=== PATIENT | female | born 1970 | race Caucasian/White ===

== ENCOUNTER → 2018-03-05 16:35 | Outpatient (CLI) | payer MEDICARE ==
[2011-06-03 13:15] VITALS: BMI 41.5
== END | disposition home or self-care (01) ==
LOC: D.MAMMO 15:15
DX: Z12.31 Encounter for screening mammogram for malignant neoplasm of breast (principal)

== ENCOUNTER 2018-10-15 21:07 | Observation (INO) | payer MEDICARE, BC ==
[~2018-10-15] VITALS: Ht 152.4 cm; Wt 84.1 kg
[2018-10-15] MEDS ORDERED: TOPROL XL50 MG PO (21:12)
[2018-10-15] MEDS ORDERED: TEGRETOL XR200 M1 PO (21:12)
[2018-10-15] MEDS ORDERED: ZESTRIL20 MG PO (21:12)
[2018-10-15] MEDS ORDERED: ZOCOR20 MG PO (21:12)
[2018-10-15] MEDS ORDERED: GLIMEPIRIDE4 MG PO (21:13)
[2018-10-15 21:50] LABS: BASOPHILS 0.5 % (0-2); EOSINOPHILS 1.8 % (0-7); HEMATOCRIT 35.9 % (36.0-48.0); HEMOGLOBIN 12.6 g/dL (12-16); IMMATURE GRANULOCYTES 0.3 % (0-5); LYMPHOCYTES 28.2 % (15-50); MCH 29.7 pg (26.0-34.0); MCHC 35.1 g/dL (31.0-37.0); MCV 84.7 fL (80.0-100.0); MEAN PLATELET VOLUME 10.5 fL (7.4-10.4); MONOCYTES 4.5 % (2-11); NEUTROPHILS 64.7 % (40-80); RBC 4.24 10x6/uL (4.00-5.40); RDW 12.5 % (11.5-14.5); WBC 9.8 10x3/uL (4.8-10.8)
[2018-10-15 21:56] LABS: PLATELET COUNT 205 10x3/uL (130-400)
[2018-10-15 22:24] LABS: ALKALINE PHOSPHATASE 141 U/L (46-116); ALT (SGPT) 20 U/L (10-68); BILIRUBIN - TOTAL 0.29 mg/dL (0.2-1.3); CALCIUM 8.6 mg/dL (8.5-10.1); CARBON DIOXIDE 27.7 mmol/L (21.0-32.0); CHLORIDE - SERUM 99 mmol/L (98-107); CKMB 0.8 U/L (0.0-3.6); CREATINE KINASE 47 UL (21-215); CREATININE - SERUM 1.7 mg/dL (0.6-1.3); MAGNESIUM - SERUM 1.5 mg/dL (1.8-2.4); PROTEIN - SERUM 7.7 g/dL (6.4-8.2); SODIUM 135 mmol/L (136-145); UREA NITROGEN 13 mg/dL (7-18); eGFR NON AFRICAN AMERICAN 34 mL/min (90-120)
[2018-10-15 22:26] LABS: CALC OSMOLALITY 288 mosm/kg (275-300); TROPONIN-I < 0.017 ng/mL (0.000-0.060)
[2018-10-15 22:27] LABS: GLUCOSE 443 mg/dL (74-106)
[2018-10-15 22:33] LABS: APPEARANCE CLEAR (CLEAR); BILIRUBIN NEGATIVE (NEGATIVE); COLOR YELLOW (YELLOW); GLUCOSE 1000 mg/dL (NEGATIVE); KETONE NEGATIVE (NEGATIVE); NITRITE NEGATIVE (NEGATIVE); PROTEIN 1+ mg/dL (NEGATIVE); UROBILINOGEN NORMAL (NORMAL)
[2018-10-15 22:34] LABS: BACTERIA MODERATE /hpf (NONE SEEN); EPITHELIAL CELLS 0-5 /hpf (0-5); RED CELLS - URINE 0-5 /hpf (0-5)
[2018-10-15 22:35] LABS: YEAST <1+ /hpf (NONE SEEN)
[2018-10-15 22:44] VITALS: BP 172/93
[2018-10-16] VITALS (8 sets, daily range): BP systolic 140–169; BP diastolic 77–100; Ht 152.4 cm; Wt 84.1 kg
--- NOTE | 2018-10-16 03:05 | NUR ---
RESTING IN ROOM QUIETLY RESP EVEN AND UNLABORED CALL LIGHT IN REACH. DIET COKE ADMINISTERED PER REQUEST
[2018-10-16 06:59] LABS: BASOPHILS 0.4 % (0-2); EOSINOPHILS 2.8 % (0-7); HEMATOCRIT 35.2 % (36.0-48.0); HEMOGLOBIN 12.1 g/dL (12-16); IMMATURE GRANULOCYTES 0.4 % (0-5); LYMPHOCYTES 29.6 % (15-50); MCH 29.3 pg (26.0-34.0); MCHC 34.4 g/dL (31.0-37.0); MCV 85.2 fL (80.0-100.0); MEAN PLATELET VOLUME 10.7 fL (7.4-10.4); MONOCYTES 6.4 % (2-11); NEUTROPHILS 60.4 % (40-80); PLATELET COUNT 177 10x3/uL (130-400); RBC 4.13 10x6/uL (4.00-5.40); RDW 12.7 % (11.5-14.5); WBC 8.5 10x3/uL (4.8-10.8)
--- NOTE | 2018-10-16 07:15 | NUR ---
Bedside report taken from COLLEEN Enriquez. Pt denies further needs at this time.
--- NOTE | 2018-10-16 07:33 | NUR ---
FSBS= 184MG /DL
[2018-10-16 07:56] LABS: CALCIUM 8.4 mg/dL (8.5-10.1); CARBON DIOXIDE 27.2 mmol/L (21.0-32.0); CHLORIDE - SERUM 104 mmol/L (98-107); CKMB 0.5 U/L (0.0-3.6); CREATINE KINASE 36 UL (21-215); CREATININE - SERUM 1.3 mg/dL (0.6-1.3); MAGNESIUM - SERUM 1.6 mg/dL (1.8-2.4); POTASSIUM - SERUM 3.6 mmol/L (3.5-5.1); SODIUM 140 mmol/L (136-145); UREA NITROGEN 14 mg/dL (7-18); eGFR NON AFRICAN AMERICAN 46 mL/min (90-120)
[2018-10-16 07:57] LABS: CALC OSMOLALITY 285 mosm/kg (275-300); GLUCOSE 208 mg/dL (74-106); TROPONIN-I < 0.017 ng/mL (0.000-0.060)
--- NOTE | 2018-10-16 08:23 | NUR ---
Pt resting in bed at this time. Pt shows no signs of distress.
--- NOTE | 2018-10-16 09:43 | NUR ---
Pt resting in bed. Pt respirations even and unlabored. Pt denies further needs at this time.
--- NOTE | 2018-10-16 11:56 | NUR ---
TRANSFER FROM ER BY W/C. REINALDOINTED TO ROOM. CALL LIGHT IN REACH. WILL CONT. PLAN OF CARE.
--- NOTE | 2018-10-16 19:26 | NUR ---
RESUMING PATIENT CARE. PATIENT IS ALERT AND ORIENTED. RESPIRATIONS ARE EVEN AND UNLABORED. NO S/S OF DISTRESS. NO C/O PAIN. DENIES NEEDS AT THIS TIME. CALL LIGHT WITHIN REACH. WILL CPOC.
--- NOTE | 2018-10-16 22:49 | NUR ---
PATIENT RESTING COMFORTABLY IN BED. RESPIRATIONS ARE EVEN AND UNLABORED. PATIENT DENIES NEEDS AT THIS TIME. NO S/S OF DISTRESS. NO C/O PAIN. CALL LIGHT WITHIN REACH. WILL CPOC.
[2018-10-17 00:30] VITALS: BP 116/63
--- NOTE | 2018-10-17 03:29 | NUR ---
PATIENT RESTING COMFORTABLY. RESPIRATIONS EVEN AND UNLABORED. NO S/S OF DISTRESS. CALL LIGHT WITHIN REACH. WILL CPOC.
[2018-10-17 05:00] VITALS: BP 113/52
--- NOTE | 2018-10-17 07:30 | NUR ---
RECEIVED PT IN BED EYES CLOSED RESP UNLABORED SKIN W/D COLOR WNL NAD NOTED WILL CONTINUE TO MONITOR
[2018-10-17 10:02] VITALS: BP 142/75
[2018-10-17 11:07] LABS: BASOPHILS 0.4 % (0-2); EOSINOPHILS 3.1 % (0-7); HEMATOCRIT 36.5 % (36.0-48.0); HEMOGLOBIN 12.8 g/dL (12-16); IMMATURE GRANULOCYTES 0.2 % (0-5); LYMPHOCYTES 21.5 % (15-50); MCH 29.7 pg (26.0-34.0); MCHC 35.1 g/dL (31.0-37.0); MCV 84.7 fL (80.0-100.0); MONOCYTES 4.5 % (2-11); NEUTROPHILS 70.3 % (40-80); RBC 4.31 10x6/uL (4.00-5.40); RDW 12.6 % (11.5-14.5)
[2018-10-17 11:21] LABS: CALC OSMOLALITY 282 mosm/kg (275-300); CALCIUM 7.6 mg/dL (8.5-10.1); CARBON DIOXIDE 25.9 mmol/L (21.0-32.0); CHLORIDE - SERUM 107 mmol/L (98-107); CREATININE - SERUM 1.3 mg/dL (0.6-1.3); MAGNESIUM - SERUM 1.3 mg/dL (1.8-2.4); POTASSIUM - SERUM 3.8 mmol/L (3.5-5.1); SODIUM 141 mmol/L (136-145); UREA NITROGEN 14 mg/dL (7-18); eGFR NON AFRICAN AMERICAN 46 mL/min (90-120)
[2018-10-17 11:23] LABS: PLATELET COUNT 235 10x3/uL (130-400); WBC 12.1 10x3/uL (4.8-10.8)
[2018-10-17 11:24] LABS: GLUCOSE 124 mg/dL (74-106); VALPROIC ACID (DEPAKOTE) < 3.0 ug/mL (50.0-100.0)
--- NOTE | 2018-10-17 11:42 | NUR ---
LAB DRAW 125 NO SLIDING SCALE REQUIRED
--- NOTE | 2018-10-17 14:01 | NUR ---
PER ESCOBAR/SOX ANALYST HOLD DISCHARGE AND START ON LEVAQUIN 500MG PO X 7 DAYS, ORDER CBC (DIFF) AND CMP FOR TOMORROW AM. HOLD DC DUE TO ELEVATED WBC'S
[2018-10-17 15:34] VITALS: BP 140/78
--- NOTE | 2018-10-17 16:23 | NUR ---
FSBS 110
--- NOTE | 2018-10-17 19:30 | NUR ---
RESUMING PATIENT CARE. PATIENT IS RESTING COMFORTABLY IN BED. RESPIRATIONS ARE EVEN AND UNLABORED. DENIES NEEDS. NO S/S OF DISTRESS. NO C/O PAIN. CALL LIGHT WITHIN REACH. WILL CPOC.
[2018-10-17 20:00] VITALS: BP 168/93
[2018-10-18] VITALS: BP 141/78
[2018-10-18 04:00] VITALS: BP 129/73
[2018-10-18 05:32] LABS: BASOPHILS 0.3 % (0-2); EOSINOPHILS 3.2 % (0-7); HEMATOCRIT 33.9 % (36.0-48.0); HEMOGLOBIN 11.5 g/dL (12-16); IMMATURE GRANULOCYTES 0.3 % (0-5); LYMPHOCYTES 25.7 % (15-50); MCHC 33.9 g/dL (31.0-37.0); MCV 85.6 fL (80.0-100.0); MEAN PLATELET VOLUME 10.6 fL (7.4-10.4); MONOCYTES 6.1 % (2-11); NEUTROPHILS 64.4 % (40-80); PLATELET COUNT 192 10x3/uL (130-400); RBC 3.96 10x6/uL (4.00-5.40); RDW 12.8 % (11.5-14.5); WBC 11.8 10x3/uL (4.8-10.8)
[2018-10-18 06:05] LABS: ALBUMIN 2.1 g/dL (3.4-5.0); ANION GAP 13.5 mmol/L (8-16); BILIRUBIN - TOTAL 0.12 mg/dL (0.2-1.3); CALCIUM 7.4 mg/dL (8.5-10.1); CARBON DIOXIDE 21.4 mmol/L (21.0-32.0); CREATININE - SERUM 1.3 mg/dL (0.6-1.3); POTASSIUM - SERUM 3.9 mmol/L (3.5-5.1); PROTEIN - SERUM 5.9 g/dL (6.4-8.2)
--- NOTE | 2018-10-18 09:47 | NUR ---
ASSESSMENT DONE. DENIES NEEDS.
[2018-10-18 10:30] VITALS: BP 144/74
[2018-10-18] MEDS ORDERED: LEVOFLOXACIN500 MG PO (11:23)
--- NOTE | 2018-10-18 11:25 | NUR ---
I have reviewed this patient and I concur with the Shift Assessment completed by the Licensed Practical Nurse today this shift.
[2018-10-18 12:56] VITALS: BP 133/76
--- NOTE | 2018-10-18 13:02 | NUR ---
DC GIVEN TO PT
--- NOTE | 2018-10-18 13:14 | NUR ---
DC HOME PER PERSONAL CAR
--- NOTE | 2018-10-18 15:07 | MORECARE ---
CASE MANAGEMENT DISCHARGE SUMMARY PATIENT: DOMINGA MASTERS UNIT: [id number] ADM DATE: 10/15/18 AGE: 48 : 70 SEX: F ROOM/BED: D.2114 AUTHOR: RANJIT FRANCO PHYSICIAN: REFERRING PHYSICIAN: AL VILLALOBOS MD DATE OF SERVICE: 10/18/18 Discharge Plan Patient Name: DOMINGA MASTERS [facility] : 1970 Planned Disposition: Home Anticipated Discharge Date: 10/18/18 Discharge Date: 10/18/2018 Expected LOS: 3 Initial Reviewer: [email or web address] Initial Review Date: 10/18/2018 Generated: 10/18/18 4:07 pm Coverage Notice Reviewer: [email or web address] Shana Velasco Notice Issued Date-Time: 10/16/2018 16:31 Notice Type: Medicare Outpatient Observation Notice Notice Delivered To: Patient Relationship to Patient: Self Sheltered Workshop Executive Director Name: Delivery Method: HAND - Hand Delivered Madyson Days: Prior Verbal Notification: Recipient Understood Notice: Yes Recipient Signature: Yes Med Rec Note Co-signed by Attending: Coverage Notice Comment: Patient Name: DOMINGA MASTERS Page [phone] at 1507 All edits/amendments must be made on the electronic document DICTATION DATE: 10/18/18 1506 INSPECTOR FLOOR SUB ASSEMBLY: MARYANN 10/18/18 1506 RPT#: [id number] DC DATE:10/18/18 STATUS: DIS IN [id number] [place] [address] END OF REPORT
== END 2018-10-18 13:29 | disposition home or self-care (01) ==
LOC: D.ER 21:07 → D.EDHOLD 23:17 → OBSVTIME 23:17 → D.M2 10-16 11:15
PROVIDERS: Family Medicine; ADMIT Internal Medicine Nephrology; ATTEND Internal Medicine Nephrology
DX: I20.9 Angina pectoris, unspecified (principal); I10 Essential (primary) hypertension; E11.9 Type 2 diabetes mellitus without complications; G40.909 Epilepsy, unspecified, not intractable, without status epilepticus; E83.42 Hypomagnesemia; N39.0 Urinary tract infection, site not specified; Z91.128 Patient's intentional underdosing of medication regimen for other reason

== ENCOUNTER 2019-10-30 14:46 | Observation (INO) | payer MEDICARE ==
[~2019-10-30] VITALS: Ht 152.4 cm; Wt 84.0 kg
--- NOTE | ~2019-10-30 | HEMODYNAMI ---
PATIENT:DOMINGA MASTERS MEDICAL RECORD: [id number] : [birth year] [facility] AD[facility]ION DATE: 10/30/19 Generatedon:10/31/201911:32 Patient name: DOMINGA MASTERS Patient #: [id number] SSN: [id number] : 1970 Date of study: 10/31/2019 Page: Of Hemodynamic Procedure Report Patient Data Patient Demographics Procedure consent was obtained First Name: DOMINGA Gender: Female Last Name: SONAM : 1970 Patient #: [id number] Age: 49 year(s) Race: SSN: [id number] Additional ID: [id number] Contact details Address: [place] [address] State: [place] City: [place] Zip code: [address] Past Medical History Allergies Allergen Reaction Date Comments Reported Other allergy 10/31/2019 sulfa Admission Admission Data Admission Date: 10/30/2019 Admission Time: 20:59 Arrival Date: 10/31/2019 Arrival Time: 0:00 Admit Source: Other Insurance Payor: Medicare Room #: D.2119 [facility] #: [id number] Height (in.): 59.84 BSA: 1.78 (m2) Height (cm.): 152 BMI: 35.06 (kg/m2) Weight (lbs.): 178.58 Weight (kg.): 81 Lab Results Lab Result Date: 10/31/2019 Lab Result Time: 0:00 Biochemistry Name Units Result Min Max BUN mg/dl 11 --(-*--)-- 7 18 Creatinine mg/dl 1.3 --(---*)-- 0.6 1.3 eGFR ml/min 46 *-(----)-- 90 120 NONAFRICAN CBC Name Units Result Min Max Hemoglobin g/dl 10.7 *-(----)-- 13.5 17.5 Procedure Procedure Types Cath Procedure Diagnostic Procedure LHC LHC w/Coronaries Sedation Charges Moderate Sedation up to 30 minutes PCI Procedure Coronary Stent Coronary Stent Initial Hemochron ACT Test Procedure Description Procedure Date Procedure Date: 10/31/2019 Procedure Start Time: 10:58 Procedure End Time: 11:29 Procedure Staff Name Function Ricky Perkins MD Performing Physician Irlanda Briggs RT Flower Picker Meli Pruett RT Monitor Margaret James RN Nurse Evette Mclaughlin RT Scrub Procedure Data Cath Procedure Fluoroscopy Diagnostic fluoroscopy Total fluoroscopy Time: 8.4 time: 8.4 min min Diagnostic fluoroscopy Total fluoroscopy dose: 989 dose: 989 mGy mGy Contrast Material Contrast Material Type Amount (ml) Isovue 300 103 Entry Location Entry Primary Successful Side Size Upsize Upsize Entry Closure Kirk ccessful Closure Location (Fr) 1 (Fr) 2 (Fr) Remarks Device Remarks Radial Right 6 Fr Mechanical artery Short Compression Femoral Right 6 Fr Exoseal artery Short Estimated blood loss: 10 ml Diagnostic catheters Device Type Used For End Catheter Placement DIAGNOSTIC [place] 110cm 5 Procedure Fr catheter ([id number]) DIAGNOSTIC JL 3.5 5Fr Procedure catheter ([id number]) DIAGNOSTIC JL 4.0 5Fr Procedure catheter ([id number]) Procedure Complications No complications Procedure Medications Medication Administration Route Dosage 0.9% NaCl I.V. 100 ml/hr Oxygen etCO2 Nasal cannula 2 l/min Lidocaine 2% added to field 20 Heparin Flush Bag added to field 2 bags (1000units/500ml NS) Radial Cocktail added to field 1 syringe (Verapamil 2mg/Nitro 400mcg/Heparin 1500units) Versed I.V. 2 mg Fentanyl I.V. 50 mcg Lopressor I.V. 5 mg Fentanyl I.V. 50 mcg Heparin Bolus I.V. 5000 units Integrilin (Bolus I.V. 7.3 ml 2mg/ml) Integrilin (Bolus wasted 2.7 ml 2mg/ml) Lopressor I.V. 5 mg Plavix P.O. 600 mg Hemodynamics Rest BSA: 1.78 (m2) HGB: 10.7 (g/dl) O2 Consumption: Estimated: 197.09 (ml/min) O2 Co nsumption indexed: Estimated:110.72 (ml/min/m) Heart Rate: 103 (bpm) Pressure Samples Time Site Value (mmHg) Purpose Heart Use Rate(bpm) 11:02 LV 133/7,133 Snapshot 90 11:02 AO 149/102(125) Pullback 105 Gradients Valve Time Site Site 2 Mean SEP/DFP Peak To Heart Use 1 (mmHg) (sec/min) Peak Rate (mmHg) (bpm) Aortic 11:02 LV AO 105 149/102(125) Snapshots Pre Cath Intra NCS Post Cath Vital Signs Time Heart Resp SPO2 etCO2 NIBP (mmHg) Rhythm Pain Sedation Rate (ipm) (%) (mmHg) Status Level (bpm) 10:46:38 102 12 98 30.5 201/122(164) ST 0 (11) 10(A) , No pain 10:51:01 96 17 97 28 137/87(115) NSR 0 (11) 10(A) , No pain 10:55:04 89 14 97 34.3 145/111(119) NSR 0 (11) 10(A) , No pain 11:00:03 98 15 96 29 Measuring NSR 0 (11) 10(A) , No pain 11:00:11 97 14 97 31.3 183/106(148) NSR 0 (11) 10(A) , No pain 11:04:28 101 11 95 11.9 185/100(128) ST 0 (11) 9(A) , No pain 11:08:48 92 11 98 20.1 186/121(154) NSR 0 (11) 9(A) , No pain 11:13:08 90 15 97 31.3 197/114(162) NSR 0 (11) 10(A) , No pain 11:17:32 83 14 98 28.3 194/113(147) NSR 0 (11) 10(A) , No pain 11:21:54 90 16 98 25.3 196/112(166) NSR 0 (11) 10(A) , No pain 11:26:21 83 18 99 35 174/89(145) NSR 0 (11) 10(A) , No pain Medications Time Medication Route Dose Verified Delivered Reason Not es Effectiveness by by 10:41:14 0.9% NaCl I.V. 100 Ricky Robles used for ml/hr Maddie Jacob procedure MD MACIAS 10:41:21 Oxygen etCO2 2 l/min Ricky Robles used for Nasal Maddie Jacob procedure cannula MD MACIAS 10:41:26 Lidocaine 2% added 20ml Ricky García for local to vial Maddie Maddie anesthetic field MD BLAS 10:41:30 Heparin Flush added 2 bags Ricky García used for Bag to Maddie Maddie procedure (1000units/500ml field MD BLAS NS) 10:41:35 Radial Cocktail added 1 Ricky García used for (Verapamil to syringe Maddie Maddie procedure 2mg/Nitro field MD BLAS 400mcg/Heparin 1500units) 10:56:05 Versed I.V. 2 mg Ricky Margaret for sedation St Akhil James MD RN 10:56:12 Fentanyl I.V. 50 mcg Ricky Margaret for sedation St Akhil James MD RN 11:02:04 Fentanyl I.V. 50 mcg Ricky Margaret for sedation St Akhil James MD RN 11:05:31 Lopressor I.V. 5 mg Ricky Margaret Per physician St Akhil James MD RN 11:15:52 Heparin Bolus I.V. 5000 Ricky Margaret for units St Akhil James anticoagulation MD MACIAS 11:15:59 Integrilin I.V. 7.3 ml Ricky Margaret for (Bolus 2mg/ml) St Akhil James antiplatelet RN therapy 11:16:20 Integrilin wasted 2.7 ml Ricky Margaret for (Bolus 2mg/ml) St Akhil James antiplatelet RN therapy 11:16:27 Lopressor I.V. 5 mg Ricky Margaret Per physician St Akhil James MD, RN 11:16:43 Plavix P.O. 600 mg Ricky Margaret for St Akhil James antiplatelet RN therapy Procedure Log Time Note 10:20:03 Informed consent obtained and on chart 10:21:05 Procedure Status Urgent Heart Cath (IP). 10:28:14 Arrival Date: 10/31/2019 12:00:00 AM 10:28:33 Admit Source: Other 10:28:42 Insurance Payor : Medicare 10:28:45 Patient Height : 59.84 inches 10:28:48 Patient Weight : 178.58 lbs 10:29:23 Lab Result : eGFR NONAFRICAN 46 ml/min 10:29:23 Lab Result : Creatinine 1.3 mg/dl 10:29:23 Lab Result : BUN 11 mg/dl 10:29:23 Lab Result : Hemoglobin 10.7 g/dl 10:29:35 Time tracking: Call back (After hours or weekends) 10:29:41 Plan of Care:Hemodynamics will remain stable., Cardiac rhythm will remain stable., Comfort level will be maintained., Respiratory function will remain adequate., Patient/ family verbilizes understanding of procedure., Procedure tolerated without complication., Recovers from procedure without complications.. 10:30:53 Irlanda Briggs RT(R) sent for patient. Start room use. 10:37:12 Patient received from Med II to CCL 1 Alert and oriented. Tansferred to table in Supine position. 10:37:14 Warm blankets applied, and fina hugger turned on for patient comfort. 10:37:15 Correct patient and procedure confirmed by team. 10:37:16 ECG and BP/O2 sat monitors applied to patient. 10:37:30 H&P Date Dictated: 10/30/2019 Within 30 days and on chart., H&P Addendum completed by physician on day of procedure. (MUST COMPLETE FOR ALL OUTPATIENTS). 10:37:49 Lab is running test 10:37:52 Pre-procedure instructions explained to patient. 10:37:55 Family unavailable. 10:37:58 Patient NPO since Midnight. 10:38:18 Patient allergic to Other allergysulfa 10:38:22 Is the patient allergic to Iodine/contrast media? No. 10:38:24 Was the patient premedicated? Yes 10:38:35 Is patient on blood thinner?No 10:38:37 Patient diabetic? Yes. 10:38:39 If diabetic: On Metformin? No 10:38:43 Snore? Yes 10:38:45 Sleep apnea? No 10:38:53 Patient pain scale 0/10 ?. 10:39:07 IV patent on arrival in left forearm with 0.9% NaCl at KVO. 10:39:11 Lab results completed and on chart. 10:39:17 Stress Test: no; N/A ? 10:40:44 Right Radial & Right Groin area was prepped with chlora-prep and draped in sterile fashion 10:40:47 Alarms reviewed by R. N. 10:40:52 Sharps counted by scrub and verified by R.N. 10:40:52 Physician paged 10:41:05 Vital chart was started 10:41:14 0.9% NaCl 100 ml/hr I.V. was administered by Margaret James RN; used for procedure; Verbal order read back and verified. 10:41:21 Oxygen 2 l/min etCO2 Nasal cannula was administered by Margaret James RN; used for procedure; Verbal order read back and verified. 10:41:26 Lidocaine 2% 20ml vial added to field was administered by Ricky Perkins MD; for local anesthetic; Verbal order read back and verified. 10:41:30 Heparin Flush Bag (1000units/500ml NS) 2 bags added to field was administered by Ricky Perkins MD; used for procedure; Verbal order read back and verified. 10:41:35 Radial Cocktail (Verapamil 2mg/Nitro 400mcg/Heparin 1500units) 1 syringe added to field was administered by Ricky Perkins MD; used for procedure; Verbal order read back and verified. 10:44:37 Physician arrived 10:44:48 Baseline sample Acquired. 10:44:53 Rhythm: sinus rhythm 10:44:55 Full Disclosure recording started 10:45:13 --------ALL STOP TIME OUT------ 10:45:17 Final Timeout: patient, procedure, and site verified with staff and physician. All members of the team are in agreement. 10:45:19 Right Radial & Right Groin site verified by team. 10:45:24 Fire Safety Assessment: A--An alcohol-based skin anteseptic being used preoperatively., C--Open oxygen or nitrous oxide is being used., D--An ESU, laser, or fiber-optic light is being used. 10:54:51 Physical assessment completed. ASA score P 3 - A patient with severe systemic disease as per Ricky Perkins MD. 10:55:08 3b) 30-44 Moderately reduced kidney function. 10:55:13 Maximum allowable contrast dose (3.7 X eGFR X 0.75)127 ml. 10:55:18 Sedation plan: IV Moderate Sedation Medication:Versed, Fentanyl 10:55:23 Use device set Radial Dx or PCI 10:55:26 ACIST Syringe (22029) opened to sterile field. 10:55:26 Medline Cath Pack ([id number]) opened to sterile field. 10:55:27 Bag Decanter (2002) opened to sterile field. 10:55:27 ACIST Hand Control (24418) opened to sterile field. 10:55:28 ACIST Manifold (69963) opened to sterile field. 10:55:29 MBrace Wrist Support (882738805) opened to sterile field. 10:55:41 EMERALD Guide Wire (344-084) opened to sterile field. 10:55:43 SHEATH 6FR RAIN (2940806) opened to sterile field. 10:56:05 Versed 2 mg I.V. was administered by Margaret James RN; for sedation; Verbal order read back and verified. 10:56:12 Fentanyl 50 mcg I.V. was administered by Margaret James RN; for sedation; Verbal order read back and verified. 10:56:42 Zero performed for pressure channel P1 10:58:49 Procedure started. 10:58:59 Local anesthetic to right radial artery with Lidocaine 2% by Ricky Perkins MD.INITIAL ACCESS ONLY 10:59:52 A 6 Fr Short sheath was inserted into the Right Radial artery 11:00:08 A DIAGNOSTIC [place] 110cm 5 Fr catheter (785463) was advanced over the wire and used for Procedure. 11:01:58 LV angiography performed. 11:02:04 Fentanyl 50 mcg I.V. was administered by Margaret James RN; for sedation; Verbal order read back and verified. 11:02:26 EF : 55 % 11:02:59 RCA angiography performed. 11:03:54 Catheter removed. 11:04:17 A DIAGNOSTIC JL 3.5 5Fr catheter ([id number]) was advanced over the wire and used for Procedure. 11:05:31 Lopressor 5 mg I.V. was administered by Margaret James RN; Per physician; Verbal order read back and verified. 11:06:40 unable to cannulate LCA 11:07:29 GUIDE 6FR XBLAD 3.5 catheter ([id number]) opened to sterile field. 11:08:11 unable to go radial. 11:08:24 SHEATH 6FR Gilbert (NGB622) opened to sterile field. 11:08:38 Local anesthetic to right femoral artery with Lidocaine 2% by Ricky Perkins MD.ADDITIONAL ACCESS 11:08:56 A 6 Fr Short sheath was inserted into the Right Femoral artery 11:10:04 A DIAGNOSTIC JL 4.0 5Fr catheter ([id number]) was advanced over the wire and used for Procedure. 11:11:13 LCA angiography performed. 11:13:27 GUIDE 6FR JL 4.0 catheter ([id number]) opened to sterile field. 11:13:28 INFLATOR Merit BasixCompak (QL4929) opened to sterile field. 11:13:29 WHISPER 300cm guide wire ([id number]) opened to sterile field. 11:13:46 Proceeding to intervention. 11:13:58 6 Fr JL4 guide catheter was inserted over the wire 11:14:52 Whis wire advanced. 11:14:56 Wire advanced across lesion. 11:15:52 Heparin Bolus 5000 units I.V. was administered by Margaret James RN; for anticoagulation; Verbal order read back and verified. :15:59 Integrilin (Bolus 2mg/ml) 7.3 ml I.V. was administered by Margaret James RN; for antiplatelet therapy; Verbal order read back and verified. 11:16:20 Integrilin (Bolus 2mg/ml) 2.7 ml wasted was administered by Margaret James RN; for antiplatelet therapy; Verbal order read back and verified. 11:16:27 Lopressor 5 mg I.V. was administered by Margaret James RN; Per physician; Verbal order read back and verified. 11:16:43 Plavix 600 mg P.O. was administered by Margaret James RN; for antiplatelet therapy; Verbal order read back and verified. 11:18:05 Place stent Inflation Number: 1 A DARRION OTW 3.0 x 12 stent ([id number]) was prepped and advanced across the Mid LAD 90. The stent was deployed at 14 RADHA for 0:20 (min:sec) 0. 11:18:29 Stent catheter was removed intact over wire. 11:24:59 Place stent Inflation Number: 1 A DARRION OTW 3.0 x 18 stent ([id number]) was prepped and advanced across the Prox LAD 80. The stent was deployed at 14 RADHA for 0:20 (min:sec) 0. 11:25:09 Wire removed. 11:25:10 Guide catheter removed. 11:25:30 Sheath removed intact; hemostasis achieved with Exoseal to the Right Femoral artery. 11:25:38 Sheath removed intact; hemostasis achieved with Mechanical Compression to the Right Radial artery. 11:25:41 Procedure ended.(Physican Out) 11::03 ACT drawn and resulted at 257 seconds. (normal therapeutic range 180-240 seconds). 11::24 Fluoroscopy time 08.40 minutes. 11:: Fluoroscopy dose: 989 mGy 11:: Flurop Dose total: 989 11::36 Dose Area Product 59236 mGy/cm. 11::41 Contrast amount:Isovue 300 103ml. 11::43 Maximum allowable dose exceeded? No. 11::45 Sharps counted by scrub and verified by R.N. 11:26:49 Saco band inflated with 12cc of air. 11:27:01 Post-op/insertion site Right Femoral artery dressed using a 4 x 4 and Tegaderm. 11:27:06 Post Procedure Pulses reassessed and unchanged 11:27:10 Post-procedure physical assessment completed. ASA score P 3 - A patient with severe systemic disease as per Ricky Perkins MD. 11:27:13 Post procedure rhythm: sinus rhythm 11::17 Estimated blood loss: 10 ml 11:27:19 Post procedure instruction explained to patient.Patient verbalizes understanding. 11:27:44 Procedure type changed to Cath procedure, Diagnostic procedure, LHC, C w/Coronaries, Sedation Charges, Moderate Sedation up to 30 minutes, PCI procedure, Coronary Stent, Coronary Stent Initial, Hemochron ACT Test 11:27:46 Procedure and supply charges have been captured, reviewed, submitted and are correct. 11:28:22 ZEPHYR REGULAR TR BAND (722954) opened to sterile field. 11:28:35 EXOSEAL 6Fr (EX600) opened to sterile field. 11:28:45 Procedure Complication : No complications 11:28:47 Vital chart was stopped 11:28:50 [facility] Findings: MVD- PCI performed (see procedure note) 11:28:58 See physician's report for complete and final results. 11::02 Report given to [facility]. 11::06 Patient transfered to [facility] with Bed. 11::09 Procedure ended. 11::09 Full Disclosure recording stopped 11:29:13 End room use (Document Last) 11:29:20 ACC-PCI Only Patient was given prescriptions, or instructed by Ricky Perkins MD to start/continue the following medications upon discharge: Plavix Intervention Summary Intervention Notes Time ActionType Lesion and Equipment Action# Pressure Duration Attributes Used 11:18:05 Place stent Mid LAD DARRION OTW 3.0 1 14 00:20 x 12 stent ([id number]) 11:24:59 Place stent Prox LAD DARRION OTW 3.0 1 14 00:20 x 18 stent ([id number]) Device Usage Item Name Manufacture Quantity Catalog Hospital Part Current Mini [facility] Lot# / Number Charge Number Stock Stock Serial# Code ACIST Syringe Acist 1 79484 338771 142907 332880 20 (14668) Medical Systems Inc Medline Cath Medline 1 [id number] 274729 26975 018157 5 Pack ([id number]) Bag Decanter Microtek 1 2001S 356679 30854 860147 5 (2001S) Medical Inc. ACIST Hand Acist 1 07992 663683 297087 156043 5 Control Medical (38887) Systems Inc ACIST Acist 1 00284 912001 886788 256015 5 Manifold Medical (02734) Systems Inc MBrace Wrist Advanced 1 140-0250-00 021359 71572 716381 5 Support Vascular (357938129) Dynamics EMERALD Guide Cardinal 1 502-455 681855 573767 905295 5 Wire Health (502-455) SHEATH 6FR Cardinal 1 8958670 739664 8599528 455452 [address] [facility] (0533655) DIAGNOSTIC Terumo 1 405013 706816 893595 191857 5 [place] 110cm 5 Fr catheter (669190) DIAGNOSTIC JL Cardinal 1 014664U 372904 326867 311335 5 3.5 5Fr Health catheter (708630F) GUIDE 6FR Cardinal 1 36260512 203553 835707 606064 10 XBLAD 3.5 Health catheter (51682610) SHEATH 6FR Terumo 1 [id number] 591379 999530 560430 40 Gilbert (USF480) DIAGNOSTIC JL Cardinal 1 623268I 414411 282383 283992 10 4.0 5Fr Health catheter (491193J) GUIDE 6FR JL Medtronic 1 [id number] 364832 25562 610698 1 4.0 catheter (CW7OA46) INFLATOR Merit 1 HQ6525 445824 291592 527288 15 [facility] BasixCompak (II0301) WHISPER 300cm Yao 1 [id number] 475601 947485 540086 5 guide wire Vascular (0948359ZH) DARRION OTW 3.0 Medtronic 1 [id number] 412611 7236781 798635 5 [id number] x 12 stent ([id number]) DARRION OTW 3.0 Medtronic 1 [id number] 175908 2135732 606801 5 [id number] x 18 stent ([id number]) ZEPHYR Cardinal 1 917314 552382 2636088 537287 5 REGULAR TR Health BAND (696267) EXOSEAL 6Fr Cardinal 1 EX600 997351 560494 868282 10 (EX600) Health Signature Audit [place] Stage Time Signature Unsigned Intra-Procedure 10/31/2019 Meli Pruett 11:30:54 AM RT(R) Intra-Procedure 10/31/2019 Margaret James 11:31:43 AM RN Intra-Procedure 10/31/2019 Ricky Person 11:32:04 AM Akhil BLAS [facility] [address] [place] [address]
[~2019-10-30 14:46] MED LIST: CLEOCIN HCL300 MG PO; FLORASTOR250 MG PO; GLIMEPIRIDE4 MG PO; KEFLEX500 MG PO; LEVOFLOXACIN500 MG PO; TEGRETOL XR200 M1 PO; TOPROL XL50 MG PO; ZESTRIL20 MG PO; ZOCOR20 MG PO
[2019-10-30 15:23] VITALS: BP 164/89
[2019-10-30 15:25] LABS: BILIRUBIN NEGATIVE (NEGATIVE); GLUCOSE 1000 mg/dL (NEGATIVE); KETONE NEGATIVE (NEGATIVE); NITRITE NEGATIVE (NEGATIVE); SPECIFIC GRAVITY 1.005 (1.005-1.020); UROBILINOGEN NORMAL (NORMAL)
[2019-10-30 15:31] LABS: BASOPHILS 0.4 % (0-2); EOSINOPHILS 3.2 % (0-7); HEMATOCRIT 35.1 % (36.0-48.0); HEMOGLOBIN 12.2 g/dL (12-16); IMMATURE GRANULOCYTES 0.3 % (0-5); LYMPHOCYTES 21.9 % (15-50); MCH 30.7 pg (26.0-34.0); MCHC 34.8 g/dL (31.0-37.0); MCV 88.4 fL (80.0-100.0); MEAN PLATELET VOLUME 9.6 fL (7.4-10.4); NEUTROPHILS 68.2 % (40-80); PLATELET COUNT 199 10x3/uL (130-400); RBC 3.97 10x6/uL (4.00-5.40); RDW 13.1 % (11.5-14.5); WBC 10.1 10x3/uL (4.8-10.8)
[2019-10-30 15:32] LABS: BACTERIA FEW /hpf (NEGATIVE); EPITHELIAL CELLS 0-5 /hpf (0-5); RED CELLS - URINE 0-5 /hpf (0-5); WHITE CELLS - URINE 0-5 /hpf (NEGATIVE)
[2019-10-30 15:41] LABS: APTT 28.6 SECONDS (22.8-39.4); INR 1.07 (0.85-1.17); PROTIME 13.8 SECONDS (11.6-15.0)
[2019-10-30 15:43] VITALS: BP 164/86
[2019-10-30 15:44] LABS: CALC OSMOLALITY 289 mosm/kg (275-300); CALCIUM 7.9 mg/dL (8.5-10.1); CARBON DIOXIDE 25.2 mmol/L (21.0-32.0); CHLORIDE - SERUM 103 mmol/L (98-107); CREATININE - SERUM 1.3 mg/dL (0.6-1.3); GLUCOSE 330 mg/dL (74-106); POTASSIUM - SERUM 4.2 mmol/L (3.5-5.1); SODIUM 139 mmol/L (136-145); UREA NITROGEN 11 mg/dL (7-18); eGFR NON AFRICAN AMERICAN 46 mL/min (90-120)
[2019-10-30 16:01] VITALS: BP 175/89
[2019-10-30 16:26] LABS: ALBUMIN 3.1 g/dL (3.4-5.0); ALKALINE PHOSPHATASE 126 U/L (30-120); ALT (SGPT) 20 U/L (10-68); BILIRUBIN - TOTAL 0.22 mg/dL (0.2-1.3); CKMB 0.9 U/L (0.0-3.6); CREATINE KINASE 68 UL (21-215); MAGNESIUM - SERUM 1.5 mg/dL (1.8-2.4); PROTEIN - SERUM 8.2 g/dL (6.4-8.2); TROPONIN-I < 0.017 ng/mL (0.000-0.060)
[2019-10-30 16:40] VITALS: BP 186/86
--- NOTE | 2019-10-30 16:41 | NUR ---
FSBS= 301 MG/DL MANE ROBERTSON NOTIFIED
--- NOTE | 2019-10-30 18:01 | NUR ---
REPORT TO COLLEEN JARRELL
--- NOTE | 2019-10-30 19:26 | NUR ---
RBS 229
[2019-10-30 20:06] VITALS: BP 178/95
--- NOTE | 2019-10-30 20:15 | NUR ---
PT SITTING IN FOWLERS POSITION, REPORTS CP HAS INCREASED FROM 5/10 TO 7/10. PT REPORTS THAT SHE RECEIVED SL NITRO EARLIER, WHICH HELPED THEN BUT NOW PAIN IS COMING BACK. EDP NOTIFIED AT THIS TIME.
--- NOTE | 2019-10-30 20:33 | NUR ---
CP ADDRESSED, SEE EMAR.
[2019-10-30 20:58] LABS: CKMB 0.8 U/L (0.0-3.6); CREATINE KINASE 50 UL (21-215)
[2019-10-30 20:59] LABS: TROPONIN-I < 0.017 ng/mL (0.000-0.060)
[2019-10-30 21:01] VITALS: BP 177/83
--- NOTE | 2019-10-30 21:30 | NUR ---
PT REPORTS PAIN IS NOW 6/10 AFTER MORPHINE ADMINISTRATION, STATES "IT WENT DOWN TO 5, BUT IT IS COMING BACK UP."
[2019-10-30] MEDS ORDERED: ASPIRIN EC81 M1 PO (22:38)
[2019-10-31 02:54] LABS: BASOPHILS 0.4 % (0-2); EOSINOPHILS 4.2 % (0-7); HEMATOCRIT 31.7 % (36.0-48.0); HEMOGLOBIN 10.7 g/dL (12-16); IMMATURE GRANULOCYTES 0.3 % (0-5); LYMPHOCYTES 21.9 % (15-50); MCH 30.1 pg (26.0-34.0); MCHC 33.8 g/dL (31.0-37.0); MCV 89.3 fL (80.0-100.0); MEAN PLATELET VOLUME 9.4 fL (7.4-10.4); MONOCYTES 5.1 % (2-11); NEUTROPHILS 68.1 % (40-80); PLATELET COUNT 186 10x3/uL (130-400); RBC 3.55 10x6/uL (4.00-5.40); RDW 13.3 % (11.5-14.5); WBC 11.2 10x3/uL (4.8-10.8)
[2019-10-31 03:17] LABS: CALCIUM 7.6 mg/dL (8.5-10.1); CARBON DIOXIDE 23.7 mmol/L (21.0-32.0); CHLORIDE - SERUM 106 mmol/L (98-107); CKMB 0.8 U/L (0.0-3.6); CREATINE KINASE 40 UL (21-215); CREATININE - SERUM 1.3 mg/dL (0.6-1.3); MAGNESIUM - SERUM 1.7 mg/dL (1.8-2.4); PHOSPHOROUS 3.2 mg/dL (2.5-4.9); POTASSIUM - SERUM 4.3 mmol/L (3.5-5.1); PRO BNP 874 pg/mL (0-125); SODIUM 139 mmol/L (136-145); THYROID STIMULATING HORMONE 2.88 uIU/mL (0.36-3.74); UREA NITROGEN 11 mg/dL (7-18); eGFR NON AFRICAN AMERICAN 46 mL/min (90-120)
[2019-10-31 03:19] LABS: CALC OSMOLALITY 281 mosm/kg (275-300); GLUCOSE 185 mg/dL (74-106); TROPONIN-I < 0.017 ng/mL (0.000-0.060)
[2019-10-31 04:00] VITALS: BP 154/79
--- NOTE | 2019-10-31 07:00 | NUR ---
BEDSIDE REPORT RECEIVED. SHIFT ASSESSMENT COMPLETED PER FLOWSHEET, SEE FLOWSHEET FOR INFORMATION. PT C/O OF PAIN IN CHEST AND ARM, NOTIFIED DR.ST CHILDS. WILL CONT TO MONITOR.
[2019-10-31 08:36] VITALS: BP 183/102
--- NOTE | 2019-10-31 09:00 | NUR ---
PRE-OP MEDICATIONS GIVEN, CLIPPED PT GROIN PER ORDERS. WILL CONT TO MONITOR.
[2019-10-31 09:04] LABS: CHOL - HDL RATIO 5.5 ratio (2.3-4.1); LDL-HDL RATIO 3.8 ratio (1.5-3.5)
--- NOTE | 2019-10-31 10:31 | NUR ---
CERTIFIED EMERGENCY VEHICLE TECHNICIAN STAFF TOOK PT VIA BED TO CERTIFIED EMERGENCY VEHICLE TECHNICIAN. WILL CONT TO MONITOR.
[2019-10-31 10:42] LABS: HCG SERUM NEGATIVE (NEGATIVE)
--- NOTE | 2019-10-31 11:58 | NUR ---
RECEIVED PT FROM CHILD SUPPORT AGENT TO ROOM 2119. DRESSING ON RIGHT GROIN AND RIGHT RADIAL. CDI. WILL CONT TO MONITOR.
[2019-10-31 12:00] VITALS: BP 123/79
--- NOTE | 2019-10-31 12:17 | CN ---
PATIENT NAME:DOMINGA MASTERS MEDICAL RECORD: [id number] : 70 LOCATION:D.M2 D.2119 ADMIT DATE: 10/30/19 ACCOUNT: [id number] CONSULTING PHYSICIAN: CHRISTINA MAHAN MD REFERRING PHYSICIAN: AL VILLALOBOS MD DATE OF CONSULTATION: 10/31/2019 HISTORY OF PRESENT ILLNESS: A 49-year-old female with family history of coronary artery disease, multiple risk factors, admitted with rest symptomology, been having dyspnea on exertion, chest tightness, pressure over the last 5-7 days, she progressed rapidly, onset of rest symptomology yesterday, noticed a decrease in effort tolerance over same time. Has history of diabetes as well as strong family history of coronary artery disease. We are asked to see her concerning her cardiovascular status. PAST MEDICAL HISTORY: Includes; 1. History of hypertension. 2. Hyperlipidemia. 3. Diabetes mellitus. MEDICATIONS: Include Amaryl 4 mg p.o. every day, aspirin 81 every day, Tegretol 200 b.i.d., lisinopril 20 every day, simvastatin 20 every day, metoprolol 50 every day. ALLERGIES: SULFA. SOCIAL HISTORY: Nonsmoker, nondrinker. Easily takes care of all her ADLs. Does try to walk on occasional basis, although nothing consistent exercise [place]. REVIEW OF SYSTEMS: The patient reports easy bruising but reports no swollen glands. The patient reports no fever, no night sweats, no significant weight gain, no significant weight loss. No significant exercise tolerance. The patient reports no dry eyes, no irritation, no vision change. Patient reports no difficulty hearing and no ear pain. Patient reports no frequent nose bleeds or nose and sinus problems. Patient reports on arm pain on exertion. No shortness of breath while lying down. No history of heart murmur. Patient reports no cough, no wheezing or coughing up blood. Patient reports no abdominal pain, no vomiting. Normal appetite. No diarrhea and not vomiting blood. No nausea and no constipation. Patient reports no incontinence. No difficulty urinating. No hematuria. No increased frequency. Patient reports no muscle aches. No weakness, no arthralgias, no back pain. No swelling of the extremities. Patient reports no abnormal mole, no jaundice, no rashes. Reports no loss of consciousness. No weakness and no numbness. No seizures, dizziness, or headaches. The patient reports no depression, no sleep disturbance, feeling safe in a relationship and no alcohol abuse. Patient reports on fatigue. Reports no runny nose or sinus pressure. No itching, no hives, and no frequent sneezing. PHYSICAL EXAMINATION: GENERAL: Pleasant female in no acute distress. VITAL SIGNS: Blood pressure 183/102, pulse 92 and regular. HEENT: Normocephalic, atraumatic. NECK: No JVD or bruit. HEART: Regular, II/ systolic ejection murmur, questionable S4 gallop. LUNGS: Good air excursion. CONSULT REPORT [id number] SONAM,DOMINGA ABDOMEN: Soft, nontender. EXTREMITIES: Pulses 2+, 1+ edema. DIAGNOSTIC DATA: EKG shows anterior T-wave changes. IMPRESSION: Acute coronary syndrome, multiple risk factors. PLAN: For angiography, intervention based on above. TRANSINT:[id number] Voice Confirmation ID: [id number] DOCUMENT ID: [id number] CHRISTINA MAHAN MD at 1217 CC: [id number] DICTATION DATE: 10/31/1952 NURSE ORTHOPEDIC: 10/31/19 1107 ADM IN [place] [id number] [place] [address]
[2019-10-31 13:18] VITALS: BP 123/79
[2019-10-31 14:03] VITALS: Ht 152.4 cm; Wt 84.0 kg
--- NOTE | 2019-10-31 14:07 | NUR ---
ATTMEPTED TO LET HALF OF THE AIR IN THE Z-BAND, PT STARTED BLEEDING. REINSERTED AIR THAT WAS TAKEN OUT. BLEEDING STOPPED. WILL CONT TO MONITOR.
[2019-10-31] MEDS ORDERED: PLAVIX75 MG PO (14:13)
--- NOTE | 2019-10-31 15:45 | MORECARE ---
CASE MANAGEMENT DISCHARGE SUMMARY PATIENT: DOMINGA MASTERS UNIT: [id number] ADM DATE: 10/30/19 AGE: 49 : 70 SEX: F ROOM/BED: D.4822 AUTHOR: JOANDOC PHYSICIAN: REFERRING PHYSICIAN: AL VILLALOBOS MD DATE OF SERVICE: 10/31/19 Discharge Plan Patient Name: DOMINGA MASTERS Facility: [facility]:[place] : 1970 Planned Disposition: Home Anticipated Discharge Date: 10/31/19 Discharge Date: Expected LOS: 1 Initial Reviewer: [email or web address] Initial Review Date: 10/31/2019 Generated: 10/31/19 4:45 pm Comments DCP- Discharge Planning Updated by [email or web address]: Krysten Haque on 10/31/19 2:[address] Patient Name: DOMINGA MASTERS Admission Status: ER Accout number: [id number] Admission Date: 10-30-2019 : 1970 Admission Diagnosis: Attending: AL VILLALOBOS Current LOS: 1 Anticipated DC Date: 10-31-2019 Planned Disposition: Home Primary Insurance: MEDICARE A & B Discharge Planning Comments: CM met with patient to complete initial dc planning assessment. CM educated patient on the CM role and verbal consent given by patient to complete assessment. Patient lives at home with her spouse. At discharge patient plans to return and feels this is a safe discharge. CM discussed availability of home health, rehab services, and medical equipment. Patient denied known discharge needs at this time. She states she has a glucometer and testing supplies and checks it 3 times a day. She voiced understanding of what to do when blood sugar was high and low. I suggested she keep a log and present it at her office visits. CM will continue to follow and will assist as needed with dc plans/needs. [employer] Supervisor: Krysten Haque DCPIA - Discharge Planning Initial Assessment Updated by [email or web address]: Krysten Haque on 10/31/19 3:42 pm * Is the patient Alert and Oriented? Yes * How many steps to enter\exit or inside your home? 3-4/0 * PCP Dr. Matta * Pharmacy [facility] * Preadmission Environment Home with Family * ADLs Independent * Equipment Glucometer * List name and contact numbers for known caregivers / representatives who currently or will assist patient after discharge: Thuan Saldana [facility] - [phone] * Verbal permission to speak to the caregivers and representatives has been obtained from the patient. Yes * Community resources currently utilized None * Additional services required to return to the preadmission environment? No * Can the patient safely return to the preadmission environment? Yes * Has this patient been hospitalized within the prior 30 days at any hospital? No Patient Name: DOMINGA MASTERS Page [id number] at 1545 All edits/amendments must be made on the electronic document DICTATION DATE: 10/31/191544 RN ANESTHETIST: MARYANN 10/31/19 154 RPT#: [id number] DC DATE: STATUS: ADM IN [facility] [address] [place] [address] END OF REPORT
[2019-10-31 16:00] VITALS: BP 146/86
--- NOTE | 2019-10-31 18:24 | NUR ---
DISHARGE INSTRUCTIONS GIVEN. WHEN GIVEN PT STATES "CAN I STAY ANOTHER NIGHT? I LIVE 2 HOURS AWAY AND I'M SCARED I'M GOING TO BLEED AGAIN. REINFORCED TEACHING TO PT AND DISCUSSED APPLYING PRESSURE TO WOUND SITE. WILL CONT TO MONITOR.
--- NOTE | 2019-10-31 20:00 | NUR ---
REPORT RECIEVED AND INITIAL ROUNDS COMPLETED. PT ALERT/ORIENTED AND RESTING. RIGHT WRIST CATH INCISION SITE WITH DRESSING C/D/I. RIGHT GROIN CATH SITE WITH DRESSING C/D/I. PT WILL BE DISCHARGING IN AM TO HOME. CURRENTLY SR PER TELEMETRY. IV SALINE LOCKED AFTER COMPLETION OF ONE LITER OF IVF.
--- NOTE | 2019-10-31 22:06 | NUR ---
BEDTIME MEDS GIVEN. FSBS 195, PT DECLINES SLIDING SCALE. PLANS ARE FOR HER TO GO HOME AT 0600 AM WITH FAMILY MEMBER THAT WORKS HERE AT HOSPITAL. CALL LIGHT IN REACH. CPOC.
[2019-10-31 22:37] VITALS: BP 127/66
--- NOTE | 2019-11-01 00:21 | NUR ---
RESTING IN BED, NO DISTRESS. 75 SR PER TELEMETRY. CALL LIGHT IN REACH. SR UP X 2.
[2019-11-01 00:40] VITALS: BP 119/64
--- NOTE | 2019-11-01 04:56 | NUR ---
PT STATES HER WILL BE HERE AT 0530 TO TAKE HER HOME. REMOVED IV TO LEFT A/C. DRESSINGS TO RIGHT WRIST AND RIGHT GROIN ARE BOTH C/D/I. PT NOW DRESSING AND AWAITING HUSBANDS ARRIVAL.
--- NOTE | 2019-11-01 06:11 | NUR ---
TAKEN BY WHEELCHAIR TO ER ENTRANCE WHERE PT NOW DISCHARGED TO CARE OF AND PRIVATE VEHICLE. ALL BELONGINGS WITH PATIENT.
--- NOTE | 2019-11-02 16:21 | MORECARE ---
CASE MANAGEMENT DISCHARGE SUMMARY PATIENT: DOMINGA MASTERS UNIT: [id number] ADM DATE: 10/30/19 AGE: 49 : 70 SEX: F ROOM/BED: D.0096 AUTHOR: JOAN,DOC PHYSICIAN: REFERRING PHYSICIAN: AL VILLALOBOS MD DATE OF SERVICE: 11/02/19 Discharge Plan Patient Name: DOMINGA MASTERS Facility: [facility]:[place] : 1970 Planned Disposition: Home Anticipated Discharge Date: 10/31/19 Discharge Date: 11/01/2019 Expected LOS: 1 Initial Reviewer: [email or web address] Initial Review Date: 10/31/2019 Generated: 11/02/19 5:21 pm Comments DCP- Discharge Planning Updated by [email or web address]: Krysten Haque on 10/31/19 2:[address] Patient Name: DOMINGA MASTERS Admission Status: ER Accout number: [id number] Admission Date: 10-30-2019 : 1970 Admission Diagnosis: Attending: AL VILLALOBOS Current LOS: 1 Anticipated DC Date: 10-31-2019 Planned Disposition: Home Primary Insurance: MEDICARE A & B Discharge Planning Comments: CM met with patient to complete initial dc planning assessment. CM educated patient on the CM role and verbal consent given by patient to complete assessment. Patient lives at home with her spouse. At discharge patient plans to return and feels this is a safe discharge. CM discussed availability of home health, rehab services, and medical equipment. Patient denied known discharge needs at this time. She states she has a glucometer and testing supplies and checks it 3 times a day. She voiced understanding of what to do when blood sugar was high and low. I suggested she keep a log and present it at her office visits. CM will continue to follow and will assist as needed with dc plans/needs. Scorekeeper: Krysten Haque DCPIA - Discharge Planning Initial Assessment Updated by [email or web address]: Krysten Haque on 10/31/19 3:42 pm * Is the patient Alert and Oriented? Yes * How many steps to enter\exit or inside your home? 3-4/0 * PCP Dr. Matta * Pharmacy [facility] * Preadmission Environment Home with Family * ADLs Independent * Equipment Glucometer * List name and contact numbers for known caregivers / representatives who currently or will assist patient after discharge: Thuan cox [place] - [phone] * Verbal permission to speak to the caregivers and representatives has been obtained from the patient. Yes * Community resources currently utilized None * Additional services required to return to the preadmission environment? No * Can the patient safely return to the preadmission environment? Yes * Has this patient been hospitalized within the prior 30 days at any hospital? No Last DP export: 10/31/19 2:45 p Patient Name: DOMINGA MASTERS Page 20243 at 1621 All edits/amendments must be made on the electronic document DICTATION DATE: 11/02/191620 ACCESSIONER: MARYANN 11/02/191620 RPT#: [id number] DC DATE:11/01/19 STATUS: DIS IN [facility] [address] [place] [address] END OF REPORT
--- NOTE | 2019-11-03 08:13 | OP ---
PATIENT NAME: DOMINGA MASTERS MEDICAL RECORD: [id number] :70 LOCATION:D.M2 D.2119 ADMISSION DATE:10/30/19 SURGEON: CHRISTINA MAHAN MD DATE OF OPERATION: 10/31/2019 PROCEDURE: Left heart catheterization, selective coronary angiography, right femoral artery approach CATHETERS: A 5-Samoan sheath, 5/4 left and right Mariluz, 5/4 pig. The procedure was well tolerated. We proceeded to do a PTCA stenting. The procedure was finished. FINDINGS: Left ventriculography in 30-degree MORIN view; normal wall motion, normal systolic function. CORONARY ANATOMY: LEFT MAIN: Left main is free of disease. LAD: LAD has 2 sequential stenosis, a distal 90% stenosis, more discrete and a more proximal 80% stenosis is more diffuse. CIRCUMFLEX: She had luminal irregularities, no flow obstructive disease. RIGHT CORONARY ARTERY: Luminal irregularities, no flow obstructive disease. IMPRESSION: Acute coronary syndrome secondary to left anterior descending. PLAN: Intervention momentarily. DESCRIPTION OF PROCEDURE: A 5-Samoan sheath was exchanged for a 6-Samoan sheath. A JL4 guiding catheter provided excellent guide catheter support followed by 300 cm Whisper wire was placed across the tightly occluded LAD, both lesions down this portion of vessel. Stent distally deployed was a 3.0 x 12, more proximally deployed 3.0 x 18 both [place] drug-eluting stents up to 14 atmospheres for 45 seconds. Final angiography shows excellent resolution of 90% stenosis distally, proximal stenosis proximally, 80% stenosis proximally. No significant residual. Sheath closed with ExoSeal device. Plavix was loaded in the lab. TRANSINT:[id number] Voice Confirmation ID: [id number] DOCUMENT ID: [id number] CHRISTINA MAHAN MD at 0813 CC: [id number] DICTATION DATE: 10/31/19 1132 IN HOME AIDE: 10/31/19 1518 DIS IN 11/01/19 [id number] [place] [address]
== END 2019-11-01 06:22 | disposition home or self-care (01) ==
LOC: D.ER 14:46 → D.M2 20:59 → OBSVTIME 20:59 → D.M2 11-01 06:22
PROVIDERS: Family Medicine; Internal Medicine Interventional Cardiology; ADMIT Internal Medicine Nephrology; ATTEND Internal Medicine Nephrology
DX: I24.9 Acute ischemic heart disease, unspecified (principal); I25.10 Atherosclerotic heart disease of native coronary artery without angina pectoris; I10 Essential (primary) hypertension; E78.5 Hyperlipidemia, unspecified; E11.9 Type 2 diabetes mellitus without complications; Z91.19 Patient's noncompliance with other medical treatment and regimen; G40.909 Epilepsy, unspecified, not intractable, without status epilepticus
CPT/HCPCS: 93458; C9600